=== PATIENT | male | born 1965 | race Caucasian/White ===

== ENCOUNTER → 2025-01-29 09:47 | Outpatient (REF) | payer OTHER, SELFPAY | LOC: HWRAD 09:47 | PROVIDERS: ATTENDING PHYSICIAN Otolaryngology; FAMILY PHYSICIAN Physician Assistant Medical | DX: J34.2 Deviated nasal septum (principal); J33.0 Polyp of nasal cavity; J32.0 Chronic maxillary sinusitis | CPT/HCPCS: 70486 ==

== ENCOUNTER → 2025-02-26 13:32 | Outpatient (REF) | payer OTHER, SELFPAY | LOC: DHSLP 13:32 | PROVIDERS: ATTENDING PHYSICIAN Otolaryngology; FAMILY PHYSICIAN Physician Assistant Medical | DX: G47.33 Obstructive sleep apnea (adult) (pediatric) (principal); R09.02 Hypoxemia | CPT/HCPCS: 95800 ==